=== PATIENT | female | born 1985 | race Caucasian/White ===

== ENCOUNTER 2017-10-01 13:42 | Emergency (ER) | payer BC, OTHER ==
[2017-10-01] MEDS ORDERED: Lactated Ringer's 1,000 ML IV STA (16:17)
--- NOTE | 2017-10-01 16:43 | ED PDOC ---
HPI: Chest Pain Time Seen by Provider: 10/01/17 16:02 Chief Complaint (Nursing): Dizziness/Lightheaded Chief Complaint (Provider): Chest pain or shortness of breath History Per: Patient History/Exam Limitations: no limitations Onset/Duration Of Symptoms: Intermittent Episodes Current Symptoms Are (Timing): Still Present Additional Complaint(s): Keri Phillips, a 32 year old female pre-diabetic patient presents to the ED complaining of chest pain and shortness of breath onset last night. Reports he woke up with left-sided intermittent chest pain. He constantly feels discomfort , nausea, generalized weakness, and chills. Patient states, from July through August he had prolonged cough and he took Azithromycin and felt better. However, the cough has returned. Denies leg swelling, no plane flights, or immobilization. Of note: patient takes control pills PMD: Dr. Basilio - Risk Factors PE Risk Factors: Neg: Decreased Mobilty /Activity Past Medical History Reviewed: Historical Data, Nursing Documentation, Vital Signs Vital Signs: Last Vital Signs Temp 98.6 F 10/01/17 14:08 Pulse 114 H 10/01/17 14:08 Resp 18 10/01/17 14:08 BP 127/81 10/01/17 14:08 Pulse Ox 99 10/01/17 18:59 - Medical History PMH: Diabetes (pre-diabetic) - Surgical History Surgical History: No Surg Hx - Family History Family History: States: Diabetes, Hypertension Other Family History: high cholesterol - Social History Current smoker - smoking cessation education provided: No Alcohol: None - Home Medications Home Medications: Ambulatory Orders Medication Instructions Recorded Vit No.126/Iron/Folic 1 tab PO DAILY 07/25/16 [Classic Tablet] Amoxicillin/Clavulanate [Augmentin 1 tab PO Q12 #20 tab 07/28/16 500 MG-125 MG Tab] Ibuprofen [Motrin Tab] 600 mg PO Q6 PRN #25 tab 07/28/16 - Allergies Allergies/Adverse Reactions: Allergies Allergy/AdvReac Type Severity Reaction Status Date / Time No Known Allergies Allergy Verified 07/25/16 21:21 Review of Systems ROS Statement: Except As Marked, All Systems Reviewed And Found Negative (As per HPI, otherwise negative) Constitutional: Positive for: Chills Cardiovascular: Positive for: Chest Pain Respiratory: Positive for: Shortness of Breath Gastrointestinal: Positive for: Nausea Musculoskeletal: Negative for: Other (no leg swelling) Neurological: Positive for: Weakness (generalized). Negative for: Other ( immobilization) Physical Exam - Reviewed Nursing Documentation Reviewed: Yes Vital Signs Reviewed: Yes - Physical Exam Appears: Positive for: Non-toxic, No Acute Distress Head Exam: Positive for: ATRAUMATIC, NORMOCEPHALIC Skin: Positive for: Warm, Dry Eye Exam: Positive for: EOMI, PERRL ENT: Negative for: Pharyngeal Erythema, Tonsillar Exudate Neck: Positive for: Painless ROM, Supple Cardiovascular/Chest: Positive for: Regular Rate, Rhythm, Chest Non Tender. Negative for: Murmur Respiratory: Positive for: Normal Breath Sounds. Negative for: Wheezing, Respiratory Distress Gastrointestinal/Abdominal: Positive for: Soft. Negative for: Tenderness, Mass , Distended, Guarding Back: Positive for: Normal Inspection. Negative for: Decreased ROM Extremity: Positive for: Normal ROM. Negative for: Deformity Lymphatic: Negative for: Adenopathy Neurologic/Psych: Positive for: Alert. Negative for: Motor/Sensory Deficits - Laboratory Results Result Diagrams: 10/01/17 17:02 10/01/17 17:02 - ECG ECG: Positive for: Interpreted By [place] ECG Rhythm: Positive for: Normal QRS, Normal ST Segment, Sinus Rhythm O2 Sat by Pulse Oximetry: 99 (RA) Pulse Ox Interpretation: Normal Medical Decision Making Medical Decision Making: Time: 16:16 Initial Impression: Chest Pain and Shortness of Breath Differential Diagnosis includes but is not limited to: Electro-abnormalities, pneumonia, Anemic, Dehydration, Reflux, Hypothyroidism Initial Plan: --Type and Screen --EKG --B-Type Natriuretic Peptide --CMP --Magnesium --Phosphorous --Thyroid Stimulating Hormone --Troponin I --CBC --D-Dimer --Chest X-ray --Lactated Ringer's 1,000mls/hr --Reevaluation Reassess: --17:44 FINDINGS: Chest X-ray LUNGS: No active pulmonary disease. PLEURA: No significant pleural effusion identified. No pneumothorax apparent. CARDIOVASCULAR: Normal. OSSEOUS STRUCTURES: No significant abnormalities. VISUALIZED UPPER ABDOMEN: Normal. OTHER FINDINGS: None. IMPRESSION: No active disease. --18:50 PROCEDURE: CT Chest with contrast (Pulmonary Angiogram) FINDINGS: PULMONARY ARTERIES: Unremarkable. No pulmonary embolism. AORTA: No acute findings. No thoracic aortic aneurysm. LUNGS: Unremarkable. No nodule, mass or pulmonary consolidation. PLEURAL SPACES: Unremarkable. No effusion or pneuomothorax. HEART: Unremarkable. No cardiomegaly. No significant pericardial effusion. LYMPH NODES: No lymphadenopathy. BONES, CHEST WALL: Unremarkable. No fracture or destructive lesion OTHER FINDINGS: Unremarkable. IMPRESSION: Unremarkable CT pulmonary angiogram. No pulmonary embolus. Documented by Leena Esparza acting as a scribe for Susanne Garcia MD. All medical record entries made by the Scribe were at my direction and personally dictated by me. I have reviewed the chart and agree that the record accurately reflects my personal performance of the history, physical exam, medical decision making, and the department course for this patient. I have also personally directed, reviewed, and agree with the discharge instructions and disposition. Disposition - Clinical Impression Clinical Impression: Palpitations Counseled Patient/Family Regarding: Studies Performed, Diagnosis, Need For Followup - Disposition Referrals: Pat Mendoza MD [Staff Provider] - 10/04/17 (FOLLOW UP WITH A CLAIMS ADJUSTER NEXT WEEK FOR FURTHER EVALUATION (YOU MAY NEED TO VISIT YOUR PRIMARY CARE DOCTOR FIRST)) Disposition: Routine/Home Disposition Time: 19:49 Condition: STABLE Instructions: Palpitations (ED) Forms: [employer] ([place]), [facility] ED School/Work Excuse
[2017-10-01 17:14] LABS: BASO % 0.3 % (0.0-2.0); EOS % 0.7 % (0.0-4.0); HEMOGLOBIN 13.7 g/dL (12.0-16.0); LYMPH % 18.2 % (20.0-40.0); MEAN CELL VOLUME 80.3 fl (81.0-99.0); MEAN CORPUSCULAR HEMOGLOBIN 26.3 pg (27.0-31.0); MEAN CORPUSCULAR HGB CONC 32.7 g/dL (33.0-37.0); MEAN PLATELET VOLUME 7.6 fl (7.2-11.7); MONO # 0.3 K/uL (0.0-0.8); MONO % 5.7 % (0.0-10.0); NEUT # 4.1 K/uL (1.8-7.0); NEUT % 75.1 % (50.0-75.0); NRBC % 0.1 % (0.0-0.0); RBC 5.2 Mil/uL (3.80-5.20); RED CELL DISTRIBUTION WIDTH 12.6 % (11.5-14.5); WHITE BLOOD COUNT 5.5 K/uL (4.8-10.8)
[2017-10-01 17:38] LABS: ALB/GLOB RATIO 1.2 (1.0-2.1); ALBUMIN 4.5 g/dL (3.5-5.0); ALT/SGPT 39 U/L (9-52); AST/SGOT 34 U/L (14-36); BLOOD UREA NITROGEN 6 mg/dl (7-17); CALCIUM 9.2 mg/dL (8.4-10.2); GFR AFRICAN-AMERICAN > 60; GFR NON-AFRICAN AMERICAN > 60
[2017-10-01 17:50] LABS: B-TYPE NATRIURETIC PEPTIDE 60.1 pg/ml (0-450)
[2017-10-01] MEDS ORDERED: Iodixanol 320 MG/ML 100 ML BOTTLE IV ONE (18:16)
[2017-10-01] MEDS ORDERED: Sodium Chloride 0.9% 50 ML IV ONE (18:16)
--- NOTE | 2017-10-01 18:22 | RAD ---
HISTORY: cp sob COMPARISON: No prior. TECHNIQUE: Chest PA and lateral FINDINGS: LUNGS: No active pulmonary disease. PLEURA: No significant pleural effusion identified. No pneumothorax apparent. CARDIOVASCULAR: Normal. OSSEOUS STRUCTURES: No significant abnormalities. VISUALIZED UPPER ABDOMEN: Normal. OTHER FINDINGS: None. IMPRESSION: No active disease. Concordant results with the preliminary interpretation rendered by the emergency department physician procedure.
--- NOTE | 2017-10-01 18:52 | CT ---
PROCEDURE: CT Chest with contrast (Pulmonary Angiogram) HISTORY: chest pain sob elevated ddimerr/o PE COMPARISON: None available. TECHNIQUE: Axial computed tomography images were obtained of the chest in the pulmonary arterial phase of enhancement. Coronal and sagittal reformatted images were created and reviewed. Intravenous contrast dose: 80 cc Visipaque 320 Radiation dose: Total exam DLP = 313.56 mGy-cm. This CT exam was performed using one or more of the following dose reduction techniques: Automated exposure control, adjustment of the mA and/or kV according to patient size, and/or use of iterative reconstruction technique. FINDINGS: PULMONARY ARTERIES: Unremarkable. No pulmonary embolism. AORTA: No acute findings. No thoracic aortic aneurysm. LUNGS: Unremarkable. No nodule, mass or pulmonary consolidation. PLEURAL SPACES: Unremarkable. No effusion or pneuomothorax. HEART: Unremarkable. No cardiomegaly. No significant pericardial effusion. LYMPH NODES: No lymphadenopathy. BONES, CHEST WALL: Unremarkable. No fracture or destructive lesion OTHER FINDINGS: Unremarkable. IMPRESSION: Unremarkable CT pulmonary angiogram. No pulmonary embolus.
[2017-10-01 20:04] VITALS: BP 117/70; PULSE 85; RESP 16; TEMP 98.8; O2SAT 100
--- NOTE | 2017-10-03 10:44 | CARD ---
APPROVED REPORT EKG Measurement Heart [id number] OR [id number] [id number] <Conclusion> Normal sinus rhythm Possible Left atrial enlargement Borderline ECG
== END 2017-10-01 21:10 | disposition home or self-care (01) ==
LOC: H.ER 13:42
DX: R00.2 Palpitations (principal); R73.03 Prediabetes
CPT/HCPCS: 71046; 71275; 80053; 81025; 83735; 83880; 84100; 84443; 84484; 85025; 85378; 86850; 86900; 93005; 99284; J7120; Q9967